=== PATIENT | female | born 1940 | race African-American/Black ===

== ENCOUNTER 2016-11-30 08:19 | Emergency (ER) | payer MEDICARE, OTHER ==
[~2016-11-30 08:19] MED LIST: ASPIRIN CHEWABL81 MG PO; ASPIRIN325 MG PO; CLARITIN10 MG PO; DUONEB 2.5-0.5M1 AMP INH; HCTZ25 MG PO; LEVAQUIN750 MG PO; LIPITOR 10MG TA10 MG PO; MUCINEX600 MG PO; NORVASC5 MG PO; PRINIVIL10 MG PO; TENORMIN50 MG PO
[2016-11-30 09:23] LABS: BASOPHIL 0.4 % (0-2); EOSINOPHIL 4.8 % (0-7); HCT 36.2 % (37.0-47.0); HGB 12.1 g/dl (12.5-16.0); LYMPHOCYTE 9.7 % (15-48); MCH 29.6 pg (25.0-31.0); MCHC 33.4 g/dL (32.0-36.0); MCV 88.5 fL (78.0-100.0); MONOCYTE 8.2 % (0-12); MPV 10.6 fL (6.0-9.5); NEUTROPHIL 76.9 % (41-80); PLT 268 K/uL (150-400); RBC 4.09 M/uL (4.20-5.40); RDW 13.9 % (11.5-14.0); WBC 10.9 K/uL (4.0-10.5)
[2016-11-30 09:47] LABS: LACTIC ACID 1.5 mmol/L (0.5-2.2)
[2016-11-30 09:48] LABS: ALBUMIN 3.8 g/dL (3.4-4.8); BILIRUBIN - TOTAL 0.2 mg/dL (0.1-1.0); CREATININE 0.7 mg/dL (0.5-1.0); GLOBULIN (CALCULATION) 3.5 g/dL (2.2-4.2); POTASSIUM 3.4 mmol/L (3.5-5.1); TOTAL PROTEIN 7.3 g/dL (6.4-8.3)
== END 2016-11-30 12:05 | disposition home or self-care (01) ==
LOC: FER 08:19
PROVIDERS: Internal Medicine
DX: J44.9 Chronic obstructive pulmonary disease, unspecified (principal); C34.91 Malignant neoplasm of unspecified part of right bronchus or lung; F17.200 Nicotine dependence, unspecified, uncomplicated; Z87.01 Personal history of pneumonia (recurrent); Z79.51 Long term (current) use of inhaled steroids; Z79.82 Long term (current) use of aspirin; Z79.899 Other long term (current) drug therapy
CPT/HCPCS: 36415; 36600; 71010; 80053; 82803; 83605; 85025; 87040; 94640